=== PATIENT | female | born 2000 | race Caucasian/White ===

== ENCOUNTER 2022-07-03 19:09 | Emergency (ER) | payer SELFPAY ==
[~2022-07-03] VITALS: Ht 162.6 cm; Wt 45.0 kg
== END 2022-07-04 03:39 | disposition left against medical advice (07) ==
LOC: ER 19:09
DX: S80.862A Insect bite (nonvenomous), left lower leg, initial encounter (principal); Z53.21 Procedure and treatment not carried out due to patient leaving prior to being seen by health care provider; W57.XXXA Bitten or stung by nonvenomous insect and other nonvenomous arthropods, initial encounter; Y93.89 Activity, other specified; Y92.89 Other specified places as the place of occurrence of the external cause; Y99.8 Other external cause status